=== PATIENT | female | born 1980 ===

== ENCOUNTER 2017-10-28 01:40 | Inpatient (IN) | payer BC ==
[2017-10-28] MEDS ORDERED: Sodium Chloride 0.9% 1,000 ML ONE (02:00)
[2017-10-28] MEDS ORDERED: Sodium Chloride 0.9% 1,000 ML IV ONE (02:17)
--- NOTE | 2017-10-28 02:20 | C.PDOC ---
History Of Present Illness 37 year old female presents to the ER with a complaint of upper abdominal pain that began 2-3 days ago that worsens with deep inspiration. Denies nausea or diarrhea. Chief Complaint (Nursing): Abdominal Pain History Per: Patient History/Exam Limitations: no limitations Onset/Duration Of Symptoms: Days Current Symptoms Are (Timing): Still Present Location Of Pain/Discomfort: RUQ, Epigastric Radiation Of Pain To:: None Quality Of Discomfort: Unable To Describe Associated Symptoms: denies: Fever, Chills, Nausea, Vomiting Exacerbating Factors: None Alleviating Factors: None Recent travel outside of the [place]: No Past Medical History Reviewed: Historical Data, Nursing Documentation, Vital Signs Vital Signs: Last Vital Signs Temp 98.3 F 10/30/17 16:00 Pulse 60 10/30/17 16:00 Resp 20 10/30/17 16:00 BP 100/68 10/30/17 16:00 Pulse Ox 98 10/30/17 16:00 - Medical History PMH: No Chronic Diseases Surgical History: Cholecystectomy Family History: States: Unknown Family Hx - Social History Hx Alcohol Use: Yes Hx Substance Use: No - Immunization History Hx Tetanus Toxoid Vaccination: No Hx Influenza Vaccination: Yes Hx Pneumococcal Vaccination: No Review Of Systems Constitutional: Negative for: Fever, Chills Cardiovascular: Negative for: Chest Pain, Palpitations Respiratory: Negative for: Shortness of Breath Gastrointestinal: Positive for: Abdominal Pain. Negative for: Nausea, Vomiting Physical Exam - Physical Exam Appears: Non-toxic, No Acute Distress Skin: Normal Color, Warm, Dry Head: Atraumatic, Normacephalic Eye(s): bilateral: Normal Inspection Oral Mucosa: Moist Chest: Symmetrical, No Tenderness Cardiovascular: Rhythm Regular Respiratory: Normal Breath Sounds, No Rales, No Rhonchi, No Wheezing Gastrointestinal/Abdominal: Soft, Tenderness (Epigastric and RUQ), No Guarding, No Rebound Neurological/Psych: Oriented x3, Normal Speech ED Course And Treatment - Laboratory Results Result Diagrams: 10/30/17 08:04 10/30/17 08:04 O2 Sat by Pulse Oximetry: 100 (Room air) Pulse Ox Interpretation: Normal - CT Scan/US CT abd/pel Other Rad Studies (CT/US): Read By Radiologist, Radiology Report Reviewed CT/US Interpretation: EXAM: CT Abdomen and Pelvis Without Intravenous Contrast. CLINICAL HISTORY: 37 years old, female; Pain; Abdominal pain; Additional info: Right sided abd pain/ microscopic. hematuria. TECHNIQUE: Axial computed tomography images of the abdomen and pelvis without intravenous contrast. All CT. scans at this facility use one or more dose reduction techniques, viz.: automated exposure control;. ma/kV adjustment per patient size (including targeted exams where dose is matched to indication; i.e. head) ; or iterative reconstruction technique. 644 images are submitted. Coronal and sagittal reformatted images were created and reviewed. COMPARISON: No relevant prior studies available. FINDINGS: Lower thorax: Mild parabronchial cuffing, which can be seen with bronchitis, reactive airway disease. or viral pneumonitis versus mild failure. There is hazy patchy groundglass infiltration off lung bases. with areas of hyperlucency. Correlation with patient's hydration status is recommended. Trace right. pericardial effusion. ABDOMEN: Liver: Unremarkable. Gallbladder and bile ducts: Cholecystectomy. Pancreas: Unremarkable. No ductal dilation. Spleen: Unremarkable. No splenomegaly. Adrenals: Unremarkable. No mass. Kidneys and ureters: Unremarkable. No obstructing stones. No hydronephrosis. Stomach and bowel: There is dilatation of small bowel loops with air fluid level as well as stool-like. appearance to mid small bowel loops with transition in the right hemipelvis seen on image 72 series 2. suspicious for limited distal small bowel obstruction. Correlation with patient's obstructive symptoms. is recommended. No mucosal thickening. Appendix: Normal appendix. PELVIS: Bladder: Partially distended bladder. Reproductive: Hysterectomy. ABDOMEN and PELVIS: Intraperitoneal space: Moderate amount of free pelvic fluid. No free air. Bones/joints: No acute fracture. No dislocation. Soft tissues: Unremarkable. Vasculature: Unremarkable. No abdominal aortic aneurysm. Lymph nodes: Unremarkable. No enlarged lymph nodes. IMPRESSION: 1. There is dilatation of small bowel loops with air fluid level as well as stool-like appearance. to mid small bowel loops with transition in the right hemipelvis seen on image 72 series 2. suspicious for limited distal small bowel obstruction. Correlation with patient' s obstructive. symptoms is recommended. 2. Mild parabronchial cuffing, which can be seen with bronchitis, reactive airway disease or viral. pneumonitis versus mild failure. There is hazy patchy groundglass infiltration off lung bases with. areas of hyperlucency. Correlation with patient's hydration status is recommended. 3. Moderate amount of free pelvic fluid. Progress Note: Blood work and urinalysis ordered. Bentyl, toradol, zofran, and IV fluids administered. Patient refuses NG tube. Disposition Discussed With Dr.: Chrystal Armando Doctor Will See Patient In The: Hospital Counseled Patient/Family Regarding: Diagnosis - Disposition Disposition: HOSPITALIZED Disposition Time: 06:27 Condition: STABLE - POA Present On Arrival: None - Clinical Impression Clinical Impression: Abdominal pain, Small bowel obstruction - Scribe Statement The provider has reviewed the documentation as recorded by the Scribyasmin Mclean All medical record entries made by the Cheliibyasmin were at my direction and personally dictated by me. I have reviewed the chart and agree that the record accurately reflects my personal performance of the history, physical exam, medical decision making, and the department course for this patient. I have also personally directed, reviewed, and agree with the discharge instructions and disposition.
[2017-10-28 02:41] LABS: BASO # 0.1 K/uL (0.0-0.2); BASO % 0.5 % (0.0-2.0); EOS # 0.2 K/uL (0.0-0.7); EOS % 1.8 % (0.0-4.0); HEMOGLOBIN 13.2 g/dL (11.0-16.0); LYMPH # 3.7 K/uL (1.0-4.3); LYMPH % 26.8 % (20.0-40.0); MEAN CELL VOLUME 88.8 fL (81.0-99.0); MEAN CORPUSCULAR HEMOGLOBIN 29.5 pg (27.0-31.0); MEAN CORPUSCULAR HGB CONC 33.3 g/dL (33.0-37.0); MEAN PLATELET VOLUME 9.2 fL (7.2-11.7); MONO # 0.8 K/uL (0.0-0.8); MONO % 5.6 % (0.0-10.0); NEUT % 65.3 % (50.0-75.0); RBC 4.49 Mil/uL (3.80-5.20); WHITE BLOOD COUNT 13.8 K/uL (4.8-10.8)
[2017-10-28 02:47] LABS: SQUAMOUS EPITHIAL 10 /hpf (0-5); URINE BACTERIA RARE (<OCC); URINE BILIRUBIN NEGATIVE (NEGATIVE); URINE BLOOD 1+ (NEGATIVE); URINE CALCIUM OXALATE CRYSTALS MOD /hpf (<OCC); URINE CLARITY Hazy (Clear); URINE COLOR Yellow (YELLOW); URINE GLUCOSE (UA) NORMAL (Normal); URINE LEUKOCYTE ESTERASE NEG Leu/uL (Negative); URINE NITRATE NEGATIVE (NEGATIVE); URINE PROTEIN 1+ mg/dL (NEGATIVE); URINE UROBILINOGEN NORMAL mg/dL (0.2-1.0)
[2017-10-28 02:51] LABS: CALCIUM 9.7 mg/dl (8.6-10.4); GFR AFRICAN-AMERICAN > 60; GFR NON-AFRICAN AMERICAN > 60; LIPASE 67 U/L (23-300)
[2017-10-28 02:52] LABS: ALB/GLOB RATIO 1.1 (1.0-2.1); ALBUMIN 4.6 g/dL (3.5-5.0); ALT/SGPT 22 U/L (9-52); AST/SGOT 38 U/L (14-36); BLOOD UREA NITROGEN 13 mg/dL (7-17)
[2017-10-28 02:55] LABS: HCG,QUALITATIVE URINE NEGATIVE (NEGATIVE)
[2017-10-28] MEDS ORDERED: Ciprofloxacin 400mg/200ml D5W 400 MG/200 ML BAG IVPB STA (03:55)
[2017-10-28] MEDS ORDERED: Ciprofloxacin 400mg/200ml D5W 400 MG/200 ML BAG IVPB ONE (04:04)
--- NOTE | 2017-10-28 05:09 | US ---
EXAM: US Abdomen Limited, Right Upper Quadrant CLINICAL HISTORY: 37 years old, female; Pain; Abdominal pain; Epigastric; Prior surgery; Surgery date: 6+ months; Surgery type: Cholecystectomy; Additional info: Ruq pain/ tenderness TECHNIQUE: Real-time ultrasound of the right upper quadrant with image documentation. COMPARISON: No relevant prior studies available. FINDINGS: Artifacts: Limited due to bowel gas shadowing. Limited due to shadowing from the ribs. Liver: Hepatomegaly measuring 18.24 cm. Limited evaluation of the liver due to shadowing. There is flow in the left portal vein left hepatic vein Gallbladder: Cholecystectomy. Common bile duct: The common bile duct measures 6 mm which is normal. Pancreas: The pancreas is not well-seen. Echogenic pancreas. Right kidney: The right kidney measures 11.35 x 3.66 x 4.72 cm. No stones. No hydronephrosis. Aorta: The proximal aorta measures 1.5 cm, the mid to distal abdominal aorta appears unremarkable. No aneurysm. 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 IMPRESSION: No acute findings.
--- NOTE | 2017-10-28 06:15 | CT ---
EXAM: CT Abdomen and Pelvis Without Intravenous Contrast CLINICAL HISTORY: 37 years old, female; Pain; Abdominal pain; Additional info: Right sided abd pain/ microscopic hematuria TECHNIQUE: Axial computed tomography images of the abdomen and pelvis without intravenous contrast. All CT scans at this facility use one or more dose reduction techniques, viz.: automated exposure control; ma/kV adjustment per patient size (including targeted exams where dose is matched to indication; i.e. head); or iterative reconstruction technique. 644 images are submitted. Coronal and sagittal reformatted images were created and reviewed. COMPARISON: No relevant prior studies available. FINDINGS: Lower thorax: Mild parabronchial cuffing, which can be seen with bronchitis, reactive airway disease or viral pneumonitis versus mild failure. There is hazy patchy groundglass infiltration off lung bases with areas of hyperlucency. Correlation with patient's hydration status is recommended. Trace right pericardial effusion. ABDOMEN: Liver: Unremarkable. Gallbladder and bile ducts: Cholecystectomy. Pancreas: Unremarkable. No ductal dilation. Spleen: Unremarkable. No splenomegaly. Adrenals: Unremarkable. No mass. Kidneys and ureters: Unremarkable. No obstructing stones. No hydronephrosis. Stomach and bowel: There is dilatation of small bowel loops with air fluid level as well as stool-like appearance to mid small bowel loops with transition in the right hemipelvis seen on image 72 series 2 suspicious for limited distal small bowel obstruction. Correlation with patient's obstructive symptoms is recommended. No mucosal thickening. Appendix: Normal appendix. PELVIS: Bladder: Partially distended bladder. Reproductive: Hysterectomy. ABDOMEN and PELVIS: Intraperitoneal space: Moderate amount of free pelvic fluid. No free air. Bones/joints: No acute fracture. No dislocation. Soft tissues: Unremarkable. Vasculature: Unremarkable. No abdominal aortic aneurysm. Lymph nodes: Unremarkable. No enlarged lymph nodes. IMPRESSION: 1. There is dilatation of small bowel loops with air fluid level as well as stool-like appearance to mid small bowel loops with transition in the right hemipelvis seen on image 72 series 2 suspicious for limited distal small bowel obstruction. Correlation with patient's obstructive symptoms is recommended. 2. Mild parabronchial cuffing, which can be seen with bronchitis, reactive airway disease or viral pneumonitis versus mild failure. There is hazy patchy groundglass infiltration off lung bases with areas of hyperlucency. Correlation with patient's hydration status is recommended. 3. Moderate amount of free pelvic fluid.
[2017-10-28] MEDS ORDERED: Morphine 4 MG/ML VIAL ONE (06:30)
--- NOTE | 2017-10-28 11:52 | CP.PCM.CON ---
History of Present Illness - History of Present Illness History of Present Illness: General Surgery Consult Note for Dr. Emerson Reason for consult: abdominal pain 37 year old female presents to the [facility] complaining of diffuse abdominal pain and feeling bloated. She states that her pain began yesterday night at 9pm, while she was drinking tea. She also states that she vomited 8 times since her pain began (non-bloody, non-bilious). She has felt "gassy" in the past, but denies any similar episodes to this severity. She states that her pain is currently a 7/10. She describes her pain as dull and achy and described her vomit as yellow, and absent of blood or solids. She denies any radiation of the pain and any other associated symptoms. She denies any sick contacts. She states that she traveled to [place] last November with no health complications. The patient denies fevers/chills, chest pain, palpitations, dyspnea, cough, diarrhea, constipation, or dysuria. She admits to nausea and vomiting. Her last bowel movement was today at 1 am, and was normal in color and consistency. CT imaging showed dilatation of the small bowel loops with air fluid level as well as stool, suggestive of SBO. PMH: Denies PSH: Cholecystectomy in 2007, in 2007 and 2012( 2nd time had complications with hemorrhage) FH: Brother has gastritis Medications: OTC Peptobismo Allergies: NKDA Social Hx: drinks alcohol socially, denies smoking,, denies illict drugs, lives with . Review of Systems - Review of Systems All systems: reviewed and no additional remarkable complaints except Past Patient History - Infectious Disease Hx of Infectious Diseases: None - Past Social History Smoking Status: Never Smoked - PSYCHIATRIC Hx Substance Use: No - SURGICAL HISTORY Hx Cholecystectomy: Yes - ANESTHESIA Hx Anesthesia: Yes Hx Anesthesia Reactions: No Hx Malignant Hyperthermia: No Meds Allergies/Adverse Reactions: Allergies Allergy/AdvReac Type Severity Reaction Status Date / Time No Known Allergies Allergy Unverified 10/28/17 01:55 - Medications Medications: Current Medications Hydromorphone HCl (Dilaudid) 1 mg IVP Q6H PRN PRN Reason: Pain, moderate (4-7) Last Admin: 10/28/17 08:01 Dose: 1 mg Sodium Chloride (Sodium Chloride 0.9%) 1,000 mls @ 100 mls/hr IV .Q10H [facility] Stop: 10/28/17 12:16 Last Admin: 10/28/17 02:21 Dose: 100 mls/hr Ciprofloxacin (Cipro 200mg/100ml D5w) 100 mls @ 67 mls/hr IVPB Q12H [facility] Morphine Sulfate (Morphine) 2 mg IVP Q4 PRN PRN Reason: Pain, severe (8-10) Pantoprazole Sodium (Protonix Inj) 40 mg IVP DAILY [facility] Last Admin: 10/28/17 09:58 Dose: 40 mg Physical Exam - Constitutional Appears: Well - Head Exam Head Exam: NORMAL INSPECTION - Cardiovascular Exam Cardiovascular Exam: REGULAR RHYTHM, RRR, +S1, +S2 - GI/Abdominal Exam GI & Abdominal Exam: Normal Bowel Sounds, Soft, Tenderness. absent: Distended, Guarding, Rebound, Rigid - Neurological Exam Neurological exam: Alert, Oriented x3 Results - Vital Signs Recent Vital Signs: Last Vital Signs Temp 98.6 F 10/28/17 07:30 Pulse 102 H 10/28/17 09:57 Resp 20 10/28/17 09:57 BP 101/47 L 10/28/17 09:57 Pulse Ox 97 10/28/17 09:57 - Labs Result Diagrams: 10/28/17 02:35 10/28/17 02:35 Labs: Laboratory Results - last 24 hr 10/28/17 10/28/17 10/28/17 02:35 02:35 02:35 WBC 13.8 H RBC 4.49 Hgb 13.2 Hct 39.8 MCV 88.8 MCH 29.5 MCHC 33.3 RDW 14.0 Plt Count 326 MPV 9.2 Neut % (Auto) 65.3 Lymph % (Auto) 26.8 [place] % (Auto) 5.6 Eos % (Auto) 1.8 Baso % (Auto) 0.5 Neut # 9.0 H Lymph # 3.7 Mathews # 0.8 Eos # 0.2 Baso # 0.1 Sodium 135 Potassium 4.6 Chloride 99 Carbon Dioxide 23 Anion Gap 17 BUN 13 Creatinine 0.6 L Est GFR ( Amer) > 60 Est GFR (Non-Af Amer) > 60 Random Glucose 99 Calcium 9.7 Total Bilirubin 0.7 AST 38 H ALT 22 Alkaline Phosphatase 106 Total Protein 8.6 H Albumin 4.6 Globulin 4.1 H Albumin/Globulin Ratio 1.1 Lipase 67 Urine Color Yellow Urine Clarity Hazy Urine pH 5.0 Ur Specific [place] 1.029 Urine Protein 1+ H Urine Glucose (UA) Normal Urine Ketones Negative Urine Blood 1+ H Urine Nitrate Negative Urine Bilirubin Negative Urine Urobilinogen Normal Ur Leukocyte Esterase Neg Urine WBC (Auto) 4 Urine RBC (Auto) 11 H Ur Squamous Epith Cells 10 H Calcium Oxalate Crystal Mod H Urine Bacteria Rare Urine HCG, Qual Negative Assessment & Plan - Assessment and Plan (Free Text) Assessment: 37 F with abdominal pain, CT suggestive of partial SBO Plan: -NPO -Will order obstructive series in AM -IV fluids -Analgesics/Anti-emetics PRN -Monitor for bowel function -Serial abdominal exams -Discussed with Dr. Ki Oakley PGY1 - Date & Time Date: 10/28/17 Time: 19:04
[2017-10-28] MEDS: Ciprofloxacin 200mg/100ml D5W 100 ML IVPB SCH (15:03)
[2017-10-28] MEDS ORDERED: Morphine 4 MG/ML VIAL IVP PRN (19:00)
--- NOTE | 2017-10-28 19:17 | CP.PCM.HP ---
Past Patient History - Infectious Disease Hx of Infectious Diseases: None - Past Social History Smoking Status: Never Smoked - PSYCHIATRIC Hx Substance Use: No - SURGICAL HISTORY Hx Cholecystectomy: Yes - ANESTHESIA Hx Anesthesia: Yes Hx Anesthesia Reactions: No Hx Malignant Hyperthermia: No Meds Allergies/Adverse Reactions: Allergies Allergy/AdvReac Type Severity Reaction Status Date / Time No Known Allergies Allergy Unverified 10/28/17 01:55 Physical Exam - Constitutional Appears: Well - Head Exam Head Exam: ATRAUMATIC, NORMAL INSPECTION, NORMOCEPHALIC - Eye Exam Eye Exam: EOMI, Normal appearance, PERRL Pupil Exam: NORMAL ACCOMODATION, PERRL - ENT Exam ENT Exam: Mucous Membranes Moist, Normal Exam - Neck Exam Neck exam: Positive for: Normal Inspection - Respiratory Exam Respiratory Exam: Decreased Breath Sounds - Cardiovascular Exam Cardiovascular Exam: REGULAR RHYTHM, +S1, +S2 - GI/Abdominal Exam GI & Abdominal Exam: Diminished Bowel Sounds, Soft - Rectal Exam Rectal Exam: Deferred Results - Vital Signs Recent Vital Signs: Last Vital Signs Temp 98.3 F 10/28/17 17:27 Pulse 76 10/28/17 17:27 Resp 18 10/28/17 17:27 BP 90/50 L 10/28/17 17:27 Pulse Ox 98 10/28/17 17:27 - Labs Result Diagrams: 10/28/17 02:35 10/28/17 02:35 Labs: Laboratory Results - last 24 hr 10/28/17 10/28/17 10/28/17 02:35 02:35 02:35 WBC 13.8 H RBC 4.49 Hgb 13.2 Hct 39.8 MCV 88.8 MCH 29.5 MCHC 33.3 RDW 14.0 Plt Count 326 MPV 9.2 Neut % (Auto) 65.3 Lymph % (Auto) 26.8 [place] % (Auto) 5.6 Eos % (Auto) 1.8 Baso % (Auto) 0.5 Neut # 9.0 H Lymph # 3.7 [place] # 0.8 Eos # 0.2 Baso # 0.1 Sodium 135 Potassium 4.6 Chloride 99 Carbon Dioxide 23 Anion Gap 17 BUN 13 Creatinine 0.6 L Est GFR ( Amer) > 60 Est GFR (Non-Af Amer) > 60 Random Glucose 99 Calcium 9.7 Total Bilirubin 0.7 AST 38 H ALT 22 Alkaline Phosphatase 106 Total Protein 8.6 H Albumin 4.6 Globulin 4.1 H Albumin/Globulin Ratio 1.1 Lipase 67 Urine Color Yellow Urine Clarity Hazy Urine pH 5.0 Ur Specific [place] 1.029 Urine Protein 1+ H Urine Glucose (UA) Normal Urine Ketones Negative Urine Blood 1+ H Urine Nitrate Negative Urine Bilirubin Negative Urine Urobilinogen Normal Ur Leukocyte Esterase Neg Urine WBC (Auto) 4 Urine RBC (Auto) 11 H Ur Squamous Epith Cells 10 H Calcium Oxalate Crystal Mod H Urine Bacteria Rare Urine HCG, Qual Negative
[2017-10-28] MEDS: Sodium Chloride 0.9% 1,000 ML IV SCH (19:40)
[2017-10-29] MEDS: Ciprofloxacin 200mg/100ml D5W 100 ML IVPB SCH (03:05)
[2017-10-29] MEDS: Sodium Chloride 0.9% 1,000 ML IV SCH ×4 (05:30→20:17)
[2017-10-29 07:52] LABS: BASO # 0.1 K/uL (0.0-0.2); BASO % 0.6 % (0.0-2.0); EOS # 0.1 K/uL (0.0-0.7); EOS % 1.6 % (0.0-4.0); HEMOGLOBIN 12.4 g/dL (11.0-16.0); LYMPH # 3.1 K/uL (1.0-4.3); LYMPH % 35.4 % (20.0-40.0); MEAN CELL VOLUME 89.3 fL (81.0-99.0); MEAN CORPUSCULAR HEMOGLOBIN 30.9 pg (27.0-31.0); MEAN CORPUSCULAR HGB CONC 34.6 g/dL (33.0-37.0); MEAN PLATELET VOLUME 8.8 fL (7.2-11.7); MONO # 0.6 K/uL (0.0-0.8); MONO % 6.6 % (0.0-10.0); NEUT # 4.9 K/uL (1.8-7.0); NEUT % 55.8 % (50.0-75.0); RBC 4.01 Mil/uL (3.80-5.20); RED CELL DISTRIBUTION WIDTH 13.8 % (11.5-14.5); WHITE BLOOD COUNT 8.8 K/uL (4.8-10.8)
[2017-10-29 08:13] LABS: MAGNESIUM 1.9 mg/dL (1.6-2.3)
--- NOTE | 2017-10-29 09:17 | CP.PCM.PN ---
Subjective - Date & Time of Evaluation Date of Evaluation: 10/29/17 Time of Evaluation: 09:57 - Subjective Subjective: General Surgery Note for Dr. Emerson Patient seen and examined at bedside. No acute event overnight. Patient states pain has improved. She reports to passing gas. Patient asking for something to drink at least. Patient has no other complaints. NGT with 250cc of output over 24 hrs. Objective - Vital Signs/Intake and Output Vital Signs (last 24 hours): Temp Pulse Resp BP Pulse Ox 98.2 F 60 20 98/64 L 96 10/29/17 08:18 10/29/17 08:18 10/29/17 08:18 10/29/17 08:18 10/29/17 08:18 Intake and Output: 10/29/17 10/29/17 06:59 18:59 Intake Total 800 Output Total 250 Balance 550 - Medications Medications: Current Medications Hydromorphone HCl (Dilaudid) 1 mg IVP Q6H PRN PRN Reason: Pain, severe (8-10) Ciprofloxacin (Cipro 200mg/100ml D5w) 100 mls @ 67 mls/hr IVPB Q12H [facility] Last Admin: 10/29/17 03:05 Dose: 67 mls/hr Sodium Chloride (Sodium Chloride 0.9%) 1,000 mls @ 100 mls/hr IV .Q10H [facility] Last Admin: 10/29/17 05:30 Dose: Not Given Morphine Sulfate (Morphine) 2 mg IVP Q4 PRN PRN Reason: Pain, moderate (4-7) Pantoprazole Sodium (Protonix Inj) 40 mg IVP DAILY [facility] Last Admin: 10/28/17 09:58 Dose: 40 mg - Labs Labs: 10/29/17 07:34 10/28/17 02:35 - Constitutional Appears: No Acute Distress - Head Exam Head Exam: ATRAUMATIC, NORMOCEPHALIC - Eye Exam Eye Exam: Normal appearance - ENT Exam Additional comments: NG tube - Neck Exam Neck Exam: Full ROM - Respiratory Exam Respiratory Exam: NORMAL BREATHING PATTERN - Cardiovascular Exam Cardiovascular Exam: REGULAR RHYTHM - GI/Abdominal Exam GI & Abdominal Exam: Soft. absent: Distended, Firm, Guarding, Rigid, Tenderness , Rebound - Extremities Exam Extremities Exam: Normal Capillary Refill - Back Exam Back Exam: absent: CVA tenderness (L), CVA tenderness (R) - Neurological Exam Neurological Exam: Alert, Awake, Oriented x3 - Psychiatric Exam Psychiatric exam: Normal Affect, Normal Mood - Skin Skin Exam: Dry, Intact, Normal Color, Warm Assessment and Plan - Assessment and Plan (Free Text) Plan: 37 F with abdominal pain suspected SBO -Obstructive series this AM -Ice chips -IV fluids -Analgesics/Analgesics PRN -Will discuss with Dr. Ki Oakley PGY1
--- NOTE | 2017-10-29 10:15 | CP.PCM.PN ---
Subjective - Date & Time of Evaluation Date of Evaluation: 10/29/17 Time of Evaluation: 10:11 - Subjective Subjective: PGY2 progress note for Dr. Armando Pt seen and examined at bedside. No acute events overnight. NG tube is in place draining dark blious fluid 250 cc overnight. Pt states abd pain is slightly improved from before. Pt is passing gas. Denies having any N/V, F/C, CP, SOB. 12 point ROS negative except for above mentioned. Objective - Vital Signs/Intake and Output Vital Signs (last 24 hours): Temp Pulse Resp BP Pulse Ox 98.2 F 60 20 98/64 L 96 10/29/17 08:18 10/29/17 08:18 10/29/17 08:18 10/29/17 08:18 10/29/17 08:18 Intake and Output: 10/29/17 10/29/17 06:59 18:59 Intake Total 800 Output Total 250 Balance 550 - Medications Medications: Current Medications Hydromorphone HCl (Dilaudid) 1 mg IVP Q6H PRN PRN Reason: Pain, severe (8-10) Ciprofloxacin (Cipro 200mg/100ml D5w) 100 mls @ 67 mls/hr IVPB Q12H [facility] Last Admin: 10/29/17 03:05 Dose: 67 mls/hr Sodium Chloride (Sodium Chloride 0.9%) 1,000 mls @ 100 mls/hr IV .Q10H [facility] Last Admin: 10/29/17 05:30 Dose: Not Given Morphine Sulfate (Morphine) 2 mg IVP Q4 PRN PRN Reason: Pain, moderate (4-7) Pantoprazole Sodium (Protonix Inj) 40 mg IVP DAILY [facility] Last Admin: 10/28/17 09:58 Dose: 40 mg - Labs Labs: 10/29/17 07:34 10/28/17 02:35 - Constitutional Appears: Non-toxic, No Acute Distress - ENT Exam ENT Exam: Mucous Membranes Moist - Respiratory Exam Respiratory Exam: Clear to Ausculation Bilateral. absent: Accessory Muscle Use , Rhonchi, Wheezes, Respiratory Distress - Cardiovascular Exam Cardiovascular Exam: REGULAR RHYTHM, +S1, +S2. absent: Gallop, Rubs, Murmur - GI/Abdominal Exam GI & Abdominal Exam: Soft, Tenderness (lower quadrants ), Normal Bowel Sounds. absent: Distended, Firm, Guarding, Rigid - Extremities Exam Extremities Exam: absent: Pedal Edema, Tenderness - Neurological Exam Neurological Exam: Alert, Awake, Oriented x3 - Psychiatric Exam Psychiatric exam: Normal Affect, Normal Mood - Skin Skin Exam: Dry, Intact, Normal Color, Warm Assessment and Plan - Assessment and Plan (Free Text) Assessment: 37 year old female with no significant past medical history of admitted for suspected SBO. SBO Obstructive series done this morning, pending report. CT A/P on admission showed dilation of small bowel loops with air-fluid level suspicious for SBO and moderate free pelvic fluid. Abd US on admission was normal NG tube was inserted yesterday. Overnight, drained about 200 cc of bilious fluid Currently tolerating ice chips Surgery is consulted Pain management with Morphine 2 mg IVP q4 and Dilaudid 1 mg IVP q6 prn Currently on ciprofloxacin Continue NS at 100 cc Prophylaxis Protonix SCDs Will consider starting rx. dvt prophylaxis all managements and orders per Dr. Armando
--- NOTE | 2017-10-29 11:57 | CP.PCM.PN ---
Subjective - Date & Time of Evaluation Date of Evaluation: 10/29/17 Time of Evaluation: 09:00 - Subjective Subjective: clinically same Objective - Vital Signs/Intake and Output Vital Signs (last 24 hours): Temp Pulse Resp BP Pulse Ox 98.2 F 60 20 98/64 L 96 10/29/17 08:18 10/29/17 08:18 10/29/17 08:18 10/29/17 08:18 10/29/17 08:18 Intake and Output: 10/29/17 10/29/17 06:59 18:59 Intake Total 800 Output Total 250 Balance 550 - Medications Medications: Current Medications Hydromorphone HCl (Dilaudid) 1 mg IVP Q6H PRN PRN Reason: Pain, severe (8-10) Sodium Chloride (Sodium Chloride 0.9%) 1,000 mls @ 100 mls/hr IV .Q10H [facility] Last Admin: 10/29/17 10:22 Dose: 100 mls/hr Morphine Sulfate (Morphine) 2 mg IVP Q4 PRN PRN Reason: Pain, moderate (4-7) Pantoprazole Sodium (Protonix Inj) 40 mg IVP DAILY [facility] Last Admin: 10/29/17 10:10 Dose: 40 mg - Labs Labs: 10/29/17 07:34 10/28/17 02:35 - Constitutional Appears: Well - Head Exam Head Exam: ATRAUMATIC, NORMAL INSPECTION, NORMOCEPHALIC - Eye Exam Eye Exam: EOMI, Normal appearance, PERRL Pupil Exam: NORMAL ACCOMODATION, PERRL - ENT Exam ENT Exam: Mucous Membranes Moist, Normal Exam - Neck Exam Neck Exam: Full ROM, Normal Inspection. absent: Lymphadenopathy - Respiratory Exam Respiratory Exam: Decreased Breath Sounds - Cardiovascular Exam Cardiovascular Exam: REGULAR RHYTHM, +S1, +S2 - GI/Abdominal Exam GI & Abdominal Exam: Soft, Diminished Bowel Sounds - Rectal Exam Rectal Exam: Deferred
--- NOTE | 2017-10-29 16:54 | RAD ---
PROCEDURE: Radiographs of the chest and abdomen (obstructive series) HISTORY: evaluate for sbo COMPARISON: No prior. TECHNIQUE: AP radiograph of the chest, with upright and supine radiographs of the abdomen. FINDINGS: CHEST: Mild bibasilar atelectasis. ABDOMEN AND PELVIS: In situ NGT, tip of which overlies left parasagittal upper/mid abdomen. Postoperative changes the metallic clips right upper quadrant of the abdomen consistent with prior cholecystectomy. Stool is seen throughout the distal transverse and proximal descending colon. No evidence of acute mechanical bowel obstruction. No gross free intraperitoneal air so far as can be seen. IMPRESSION: Mild bibasilar atelectasis. In situ NGT. Changes of cholecystectomy. No evidence of acute mechanical bowel obstruction
[2017-10-30] MEDS: Sodium Chloride 0.9% 1,000 ML IV SCH ×2 (02:02→12:06)
[2017-10-30 08:23] LABS: BASO # 0.1 K/uL (0.0-0.2); BASO % 0.9 % (0.0-2.0); EOS # 0.2 K/uL (0.0-0.7); EOS % 2.1 % (0.0-4.0); HEMOGLOBIN 12.3 g/dL (11.0-16.0); LYMPH # 3.1 K/uL (1.0-4.3); LYMPH % 39.8 % (20.0-40.0); MEAN CELL VOLUME 89.2 fL (81.0-99.0); MEAN CORPUSCULAR HEMOGLOBIN 30.4 pg (27.0-31.0); MEAN CORPUSCULAR HGB CONC 34.1 g/dL (33.0-37.0); MEAN PLATELET VOLUME 8.9 fL (7.2-11.7); MONO # 0.4 K/uL (0.0-0.8); MONO % 5.1 % (0.0-10.0); NEUT # 4.1 K/uL (1.8-7.0); NEUT % 52.1 % (50.0-75.0); NRBC % 0.1 % (0.0-2.0); RBC 4.03 Mil/uL (3.80-5.20); RED CELL DISTRIBUTION WIDTH 13.6 % (11.5-14.5); WHITE BLOOD COUNT 7.8 K/uL (4.8-10.8)
[2017-10-30 08:34] LABS: ALB/GLOB RATIO 1.1 (1.0-2.1); ALBUMIN 3.5 g/dL (3.5-5.0); ALT/SGPT 31 U/L (9-52); AST/SGOT 27 U/L (14-36); BLOOD UREA NITROGEN 9 mg/dL (7-17); CALCIUM 8.3 mg/dl (8.6-10.4); GFR AFRICAN-AMERICAN > 60; GFR NON-AFRICAN AMERICAN > 60
[2017-10-30 08:50] VITALS: RESP 20
[2017-10-30] MEDS ORDERED: Pantoprazole 40 mg EC Tab PO SCH (10:30)
--- NOTE | 2017-10-30 13:40 | CP.PCM.PN ---
Subjective - Date & Time of Evaluation Date of Evaluation: 10/30/17 Time of Evaluation: 13:37 - Subjective Subjective: PGY2 progress note for Dr. Armando Pt seen and examined at bedside. No acute events overnight. NG tube removed this morning. Pt states abd pain is improved. Denies having any N/V/D/C. Pt is passing gas and had 2 BMs. Denies having any F/C, CP, SOB. 12 point ROS negative except for above mentioned. Objective - Vital Signs/Intake and Output Vital Signs (last 24 hours): Temp Pulse Resp BP Pulse Ox 98.2 F 71 20 100/61 97 10/30/17 08:49 10/30/17 08:49 10/30/17 08:49 10/30/17 08:49 10/30/17 08:49 Intake and Output: 10/30/17 10/30/17 06:59 18:59 Intake Total 800 800 Output Total 200 200 Balance 600 600 - Medications Medications: Current Medications Hydromorphone HCl (Dilaudid) 1 mg IVP Q6H PRN PRN Reason: Pain, severe (8-10) Sodium Chloride (Sodium Chloride 0.9%) 1,000 mls @ 100 mls/hr IV .Q10H [facility] Last Admin: 10/30/17 12:06 Dose: 100 mls/hr Morphine Sulfate (Morphine) 2 mg IVP Q4 PRN PRN Reason: Pain, moderate (4-7) Pantoprazole Sodium (Protonix Ec Tab) 40 mg PO DAILY [facility] Last Admin: 10/30/17 10:50 Dose: 40 mg Pneumococcal Polyvalent Vaccine (Pneumovax 23 Vaccine) 0.5 ml IM .ONCE ONE Stop: 10/31/17 10:01 - Labs Labs: 10/30/17 08:04 10/30/17 08:04 - Constitutional Appears: Non-toxic, No Acute Distress - Head Exam Head Exam: ATRAUMATIC - ENT Exam ENT Exam: Mucous Membranes Moist - Respiratory Exam Respiratory Exam: Clear to Ausculation Bilateral. absent: Accessory Muscle Use , Rales, Rhonchi, Wheezes, Respiratory Distress - Cardiovascular Exam Cardiovascular Exam: REGULAR RHYTHM, +S1, +S2. absent: Gallop, Rubs, Murmur - GI/Abdominal Exam GI & Abdominal Exam: Soft, Normal Bowel Sounds. absent: Distended, Firm, Guarding, Rigid, Tenderness, Organomegaly - Extremities Exam Extremities Exam: absent: Pedal Edema, Tenderness - Neurological Exam Neurological Exam: Alert, Awake, Oriented x3 - Psychiatric Exam Psychiatric exam: Normal Affect, Normal Mood - Skin Skin Exam: Dry, Intact, Normal Color, Warm Assessment and Plan - Assessment and Plan (Free Text) Assessment: 37 year old female with no significant past medical history of admitted for suspected SBO. SBO -Obstructive series done yesterday showed no SBO. -CT A/P on admission showed dilation of small bowel loops with air-fluid level suspicious for SBO and moderate free pelvic fluid. -Abd US on admission was normal - NG tube removed. Will advance diet today. If pt tolerates, will D/C -Pain management with Morphine 2 mg IVP q4 and Dilaudid 1 mg IVP q6 prn -Continue NS at 100 cc Prophylaxis Protonix SCDs all managements and orders per Dr. Armando
--- NOTE | 2017-10-30 14:03 | CP.PCM.PN ---
Subjective - Date & Time of Evaluation Date of Evaluation: 10/30/17 Time of Evaluation: 08:59 - Subjective Subjective: General Surgery Progress Note for Dr. Emerson This patient was seen and examined this AM at bedside. No acute events overnight. Patient is passing gas, moving bowels, denies chest pain SOB nause vomiting fevers chills or chest pain. Objective - Vital Signs/Intake and Output Vital Signs (last 24 hours): Temp Pulse Resp BP Pulse Ox 98.2 F 71 20 100/61 97 10/30/17 08:49 10/30/17 08:49 10/30/17 08:49 10/30/17 08:49 10/30/17 08:49 Intake and Output: 10/30/17 10/30/17 06:59 18:59 Intake Total 800 800 Output Total 200 200 Balance 600 600 - Medications Medications: Current Medications Hydromorphone HCl (Dilaudid) 1 mg IVP Q6H PRN PRN Reason: Pain, severe (8-10) Sodium Chloride (Sodium Chloride 0.9%) 1,000 mls @ 100 mls/hr IV .Q10H [facility] Last Admin: 10/30/17 12:06 Dose: 100 mls/hr Morphine Sulfate (Morphine) 2 mg IVP Q4 PRN PRN Reason: Pain, moderate (4-7) Pantoprazole Sodium (Protonix Ec Tab) 40 mg PO DAILY [facility] Last Admin: 10/30/17 10:50 Dose: 40 mg Pneumococcal Polyvalent Vaccine (Pneumovax 23 Vaccine) 0.5 ml IM .ONCE ONE Stop: 10/31/17 10:01 - Labs Labs: 10/30/17 08:04 10/30/17 08:04 - Constitutional Appears: Non-toxic, No Acute Distress - Head Exam Head Exam: ATRAUMATIC, NORMOCEPHALIC - Eye Exam Eye Exam: EOMI, Normal appearance - ENT Exam ENT Exam: Mucous Membranes Moist - Respiratory Exam Respiratory Exam: NORMAL BREATHING PATTERN - Cardiovascular Exam Cardiovascular Exam: +S1, +S2 - GI/Abdominal Exam GI & Abdominal Exam: Soft. absent: Firm, Guarding, Rigid, Tenderness - Neurological Exam Neurological Exam: Alert, Awake Assessment and Plan - Assessment and Plan (Free Text) Assessment: 37 F with abdominal pain suspected SBO Advance diet as tolerated -serial abdominal exams -Will discuss with Dr. Ki Garnica PGY2
[2017-10-30 17:10] VITALS: BP 100/68; PULSE 60; TEMP 98.3
[2017-10-30] MEDS ORDERED: Influenza Vaccine 60 mcg/0.5 mL SYR (4YR UP) IM ONE (18:30)
[2017-10-30] MEDS ORDERED: Pneumococcal 23-Valent Vaccine IM ONE (18:30)
[2017-10-31 16:42] VITALS: O2SAT 100
== END 2017-10-30 20:19 | disposition home or self-care (01) | DRG 390 ==
LOC: C.ER 01:40 → C.9E 06:36 → C.3T 16:36
PROVIDERS: ADMIT Internal Medicine Nephrology; ATTEND Internal Medicine Nephrology
DX: K56.600 Partial intestinal obstruction, unspecified as to cause (principal); Z90.49 Acquired absence of other specified parts of digestive tract

== ENCOUNTER 2018-08-27 05:55 | Emergency (ER) | payer BC ==
[2018-08-27] MEDS ORDERED: Sodium Chloride 0.9% 1,000 ML IV ONE (07:14)
[2018-08-27 07:34] LABS: BASO # 0.1 K/uL (0.0-0.2); BASO % 0.4 % (0.0-2.0); EOS # 0.1 K/uL (0.0-0.7); EOS % 0.4 % (0.0-4.0); LYMPH # 2.3 K/uL (1.0-4.3); LYMPH % 12.4 % (20.0-40.0); MEAN CELL VOLUME 88.3 fL (81.0-99.0); MEAN CORPUSCULAR HEMOGLOBIN 29.7 pg (27.0-31.0); MEAN CORPUSCULAR HGB CONC 33.6 g/dL (33.0-37.0); MEAN PLATELET VOLUME 9.1 fL (7.2-11.7); MONO % 5.2 % (0.0-10.0); NEUT # 15.1 K/uL (1.8-7.0); NEUT % 81.6 % (50.0-75.0); RBC 4.72 Mil/uL (3.80-5.20); RED CELL DISTRIBUTION WIDTH 14.1 % (11.5-14.5); WHITE BLOOD COUNT 18.5 K/uL (4.8-10.8)
[2018-08-27] MEDS ORDERED: Sodium Chloride 0.9% 1,000 ML ONE (07:43)
[2018-08-27 07:49] LABS: ALB/GLOB RATIO 1.3 (1.0-2.1); ALBUMIN 4.7 g/dL (3.5-5.0); ALT/SGPT 44 U/L (9-52); AST/SGOT 36 U/L (14-36); BLOOD UREA NITROGEN 17 mg/dL (7-17); CALCIUM 9.3 mg/dl (8.6-10.4); GFR NON-AFRICAN AMERICAN > 60; LIPASE 62 U/L (23-300)
[2018-08-27 07:56] LABS: SQUAMOUS EPITHIAL 10 /hpf (0-5); URINE BACTERIA OCC (<OCC); URINE BILIRUBIN NEGATIVE (NEGATIVE); URINE BLOOD 1+ (NEGATIVE); URINE CLARITY Hazy (Clear); URINE COLOR Yellow (YELLOW); URINE GLUCOSE (UA) NORMAL (Normal); URINE LEUKOCYTE ESTERASE NEG Leu/uL (Negative); URINE PROTEIN NEGATIVE (NEGATIVE); URINE UROBILINOGEN NORMAL mg/dL (0.2-1.0)
--- NOTE | 2018-08-27 08:06 | C.PDOC ---
History Of Present Illness 38 year old female presents to the ED complaining of abdominal pain. Patient reports she woke up at 0300 this morning with the pain and had multiple episodes of vomiting and diarrhea since then. Notes abdominal pain is intermittent, cramping and is relieved when she has a bowel movement, but returns. Denies any fever, chills, or urinary symptoms. Time Seen by Provider: 08/27/18 07:01 Chief Complaint (Nursing): Abdominal Pain History Per: Patient History/Exam Limitations: no limitations Onset/Duration Of Symptoms: Hrs Current Symptoms Are (Timing): Still Present Location Of Pain/Discomfort: Epigastric Radiation Of Pain To:: None Associated Symptoms: Nausea, Vomiting, Diarrhea. denies: Fever, Chills, Urinary Symptoms Past Medical History Reviewed: Historical Data, Nursing Documentation, Vital Signs Vital Signs: Last Vital Signs Temp 98.7 F 08/27/18 05:57 Pulse 105 H 08/27/18 05:57 Resp 20 08/27/18 05:57 BP 117/80 08/27/18 05:57 Pulse Ox 99 08/27/18 05:57 - Medical History PMH: No Chronic Diseases Surgical History: Cholecystectomy, Other Surgeries: hysterectomy Family History: States: No Known Family Hx - Social History Hx Alcohol Use: Yes Hx Substance Use: No - Immunization History Hx Tetanus Toxoid Vaccination: No Hx Influenza Vaccination: No Hx Pneumococcal Vaccination: No Review Of Systems Constitutional: Negative for: Fever, Chills Cardiovascular: Negative for: Chest Pain Gastrointestinal: Positive for: Nausea, Vomiting, Abdominal Pain, Diarrhea Genitourinary: Negative for: Dysuria, Hematuria Musculoskeletal: Negative for: Back Pain Skin: Negative for: Rash Neurological: Negative for: Weakness, Numbness Physical Exam - Physical Exam Appears: Non-toxic, No Acute Distress Skin: Warm, Dry, No Rash Head: Normacephalic Eye(s): bilateral: PERRL, EOMI Nose: Normal Oral Mucosa: Dry Neck: Supple Cardiovascular: Rhythm Regular, No Murmur Respiratory: No Rales, No Rhonchi, No Wheezing Gastrointestinal/Abdominal: Soft, Tenderness (epigastric and LUQ tenderness ), No Distention, No Guarding, No Rebound Back: No CVA Tenderness Extremity: Bilateral: Atraumatic, Normal Color And Temperature, Normal ROM Neurological/Psych: Oriented x3, Normal Speech, Normal Cognition Gait: Steady ED Course And Treatment - Laboratory Results Result Diagrams: 08/27/18 07:29 08/27/18 07:29 O2 Sat by Pulse Oximetry: 99 (RA) Pulse Ox Interpretation: Normal - CT Scan/US CT abd/pel Other Rad Studies (CT/US): Read By Radiologist, Radiology Report Reviewed CT/US Interpretation: IMPRESSION: No acute pathology. Progress Note: Patient reports feeling better. Denies any abdominal pain, nausea, or vomiting. Reevaluation Time: 07:50 Reassessment Condition: Improved Medical Decision Making Medical Decision Making: Plan pt with epigastric tenderness on exam, with n/v/d and cramping pain with bm. - Pepcid 20mg IVP - Zofran 4mg IVP - IV fluids labs 0820 pt still with epigastric pain on exam, will get ct abdomen. 1125 pt with no acute findings on ct abdomen. pt has not vomited in ed. on re- exam of abdomen, soft, nd, nt. will d/c home with pepcid and zofran. f/u pmd. Disposition Counseled Patient/Family Regarding: Studies Performed, Diagnosis, Need For Followup, Rx Given - Disposition Referrals: [facility] [Outside] Disposition: HOME/ ROUTINE Disposition Time: 11:26 Condition: IMPROVED Additional Instructions: [place] Pepcid segn lo prescrito. Puede usar ondansetrn hasta 3 veces al da para las nuseas si es necesario. Ashley lquidos derrick hoy en pequeas cantidades a la vez, luego puede agregar tostadas, galletas, arroz hickey comn, compota de manzana, sopa segn sea tolerado. Karen un seguimiento con shook mdico o en la clnica en los prximos oviedo. Regrese a la krysta de emergencias para cualquier sntoma peor. Take Pepcid as prescribed. May use ondansetron up to 3 times a day for nausea if needed. Drink clear fluids today in small amounts at a time, then can add toast, crackers, plain white rice, applesauce, soup as tolerated. Follow up with your doctor or in the clinic in the next few days. Return to ER for any worse symptoms. Prescriptions: Famotidine [Pepcid] 20 mg PO DAILY #14 tab Ondansetron ODT [Zofran ODT] 4 mg PO TID #12 odt Instructions: Viral Gastroenteritis, Adult (DC) Forms: Gen Discharge Inst Japanese, [facility] (Japanese) - Clinical Impression Clinical Impression: Gastroenteritis - PA / PEARL HAND / Resident Statement MD/DO has reviewed & agrees with the documentation as recorded. - Scribe Statement The provider has reviewed the documentation as recorded by the Scribyasmin Mullins All medical record entries made by the Ankit were at my direction and personally dictated by me. I have reviewed the chart and agree that the record accurately reflects my personal performance of the history, physical exam, medical decision making, and the department course for this patient. I have also personally directed, reviewed, and agree with the discharge instructions and di sposition.
[2018-08-27] MEDS ORDERED: Iodixanol 320 MG/ML 100 ML BOTTLE IV ONE (08:58)
--- NOTE | 2018-08-27 11:09 | CT ---
Date of service: 08/27/2018 PROCEDURE: CT Abdomen and Pelvis with and without intravenous contrast HISTORY: upper ab pain COMPARISON: None. TECHNIQUE: Axial images of the abdomen were obtained in the pre contrast, portal venous and delayed phases of enhancement. Coronal and sagittal reformats were generated. Contrast dose: Radiation dose: Total exam DLP = 490.34 mGy-cm. This CT exam was performed using one or more of the following dose reduction techniques: Automated exposure control, adjustment of the mA and/or kV according to patient size, and/or use of iterative reconstruction technique. FINDINGS: LOWER THORAX: Unremarkable. LIVER: Unremarkable. No gross lesion or ductal dilatation. GALLBLADDER AND BILE DUCTS: Cholecystectomy. PANCREAS: Unremarkable. No gross lesion or ductal dilatation. SPLEEN: Unremarkable. ADRENALS: Unremarkable. No mass. KIDNEYS AND URETERS: Unremarkable. No hydronephrosis. No solid mass. VASCULATURE: Unremarkable. No aortic aneurysm. No aortic atherosclerotic calcification or mural plaque present. BOWEL: Unremarkable. No obstruction. No gross mural thickening. APPENDIX: Normal appendix. PERITONEUM: Unremarkable. No free fluid. No free air. LYMPH NODES: Unremarkable. No enlarged lymph nodes. BLADDER: Unremarkable. REPRODUCTIVE: Status post supracervical hysterectomy. BONES: No acute fracture. OTHER FINDINGS: None. IMPRESSION: No acute pathology.
[2018-08-27 11:49] VITALS: RESP 18; TEMP 99.2
[2018-08-27 12:07] VITALS: BP 100/60; PULSE 80
[2018-08-27 13:44] VITALS: O2SAT 99
== END 2018-08-27 12:09 | disposition home or self-care (01) ==
LOC: C.ER 05:55
DX: K52.9 Noninfective gastroenteritis and colitis, unspecified (principal)
CPT/HCPCS: 74177; 80053; 81001; 83690; 85025; 96361; 96374; 96375; 99285; J2405; J7030; Q9967

== ENCOUNTER 2019-01-18 23:01 | Emergency (ER) | payer BC ==
[2019-01-18 23:34] VITALS: RESP 14; O2SAT 98
[2019-01-18] MEDS ORDERED: Sodium Chloride 0.9% 1,000 ML IV ONE (23:41)
--- NOTE | 2019-01-18 23:41 | C.PDOC ---
History Of Present Illness Patient presents with nausea and vomiting worsening over the last 2 days, had some diarrhea, but not today. Not tolerating po. no f/c. Had hysterectomy 6 years ago. Time Seen by Provider: 01/18/19 23:41 Chief Complaint (Nursing): Abdominal Pain History Per: Patient History/Exam Limitations: no limitations Onset/Duration Of Symptoms: Hrs Current Symptoms Are (Timing): Still Present Context: Other Severity: Moderate Pain Scale Rating Of: 5 Location Of Pain/Discomfort: Diffuse Radiation Of Pain To:: None Quality Of Discomfort: Dull, Cramping Associated Symptoms: Nausea, Vomiting. denies: Fever, Chills, Diarrhea Exacerbating Factors: None Alleviating Factors: None Last Bowel Movement: Today Recent travel outside of the [place]: No Additional History Per: Family Abnormal Vaginal Bleeding: No Last Menstral Period: 6 years ago Past Medical History Reviewed: Historical Data, Nursing Documentation, Vital Signs Vital Signs: Last Vital Signs Temp 98.7 F 01/18/19 23:31 Pulse 81 01/18/19 23:31 Resp 14 01/18/19 23:31 BP 124/79 01/18/19 23:31 Pulse Ox 98 01/18/19 23:31 Surgical History: Cholecystectomy, Family History: States: No Known Family Hx - Social History Hx Alcohol Use: Yes Hx Substance Use: No - Immunization History Hx Tetanus Toxoid Vaccination: No Hx Influenza Vaccination: No Hx Pneumococcal Vaccination: No Review Of Systems Constitutional: Negative for: Fever, Chills ENT: Negative for: Throat Pain Cardiovascular: Negative for: Chest Pain Respiratory: Negative for: Shortness of Breath Gastrointestinal: Positive for: Nausea, Vomiting, Abdominal Pain Genitourinary: Negative for: Dysuria Musculoskeletal: Negative for: Back Pain Skin: Negative for: Rash Neurological: Negative for: Weakness Psych: Negative for: Anxiety Physical Exam - Physical Exam Appears: Non-toxic Skin: Warm, Dry Head: Normacephalic Eye(s): bilateral: Normal Inspection Oral Mucosa: Moist Neck: Supple Chest: Symmetrical Cardiovascular: Rhythm Regular Respiratory: No Rales, No Rhonchi, No Wheezing Gastrointestinal/Abdominal: Soft, Tenderness, No Distention, No Guarding, No Rebound Back: No CVA Tenderness Extremity: No Tenderness Extremity: Bilateral: Atraumatic Neurological/Psych: Oriented x3 Gait: Steady ED Course And Treatment - Laboratory Results Result Diagrams: 01/18/19 23:59 01/18/19 23:59 O2 Sat by Pulse Oximetry: 98 Pulse Ox Interpretation: Normal Reevaluation Time: 04:10 Reassessment Condition: Improved Medical Decision Making Medical Decision Making: Upon provider reevaluation patient is feeling better, is medically stable, and requires no further treatment in the ED at this time. Patient will be discharged home with Rx for zofran . Counseling was provided and all questions were answered regarding diagnosis and need for follow up with the referred clinic. There is agreement to discharge plan. Return if symptoms persist or worsen. Disposition Counseled Patient/Family Regarding: Studies Performed, Diagnosis, Need For Fo llowup, Rx Given - Disposition Referrals: Nadia Abel RETAIL TRAINING MANAGER [Nurse Practitioner] - Disposition: HOME/ ROUTINE Disposition Time: 23:41 Condition: FAIR Additional Instructions: Por favor regrese si los sntomas recurren. Prescriptions: Ondansetron ODT [Zofran ODT] 1 odt PO BID PRN #6 odt PRN Reason: Nausea/Vomiting Pantoprazole Sodium [Protonix] 40 mg PO DAILY #14 ect Instructions: Acute Abdomen (Belly Pain), Adult (DC) Forms: [employer] (Romansh) Print Language: MALTESE - Clinical Impression Clinical Impression: Diarrhea, Nausea
[2019-01-19] MEDS ORDERED: Sodium Chloride 0.9% 1,000 ML ONE (00:14)
[2019-01-19 00:46] LABS: BASO % 0.3 % (0.0-2.0); EOS # 0.1 K/uL (0.0-0.7); EOS % 0.6 % (0.0-4.0); LYMPH # 1.9 K/uL (1.0-4.3); LYMPH % 14.9 % (20.0-40.0); MEAN CELL VOLUME 90.3 fL (81.0-99.0); MEAN CORPUSCULAR HEMOGLOBIN 30.5 pg (27.0-31.0); MEAN CORPUSCULAR HGB CONC 33.8 g/dL (33.0-37.0); MEAN PLATELET VOLUME 8.8 fL (7.2-11.7); MONO # 0.5 K/uL (0.0-0.8); MONO % 4.2 % (0.0-10.0); NEUT # 10.4 K/uL (1.8-7.0); NRBC % 0.1 % (0.0-2.0); RBC 4.58 Mil/uL (3.80-5.20); RED CELL DISTRIBUTION WIDTH 14.6 % (11.5-14.5); WHITE BLOOD COUNT 12.9 K/uL (4.8-10.8)
[2019-01-19 00:50] LABS: SQUAMOUS EPITHIAL 1 /hpf (0-5); URINE BACTERIA RARE (<OCC); URINE BILIRUBIN NEGATIVE (NEGATIVE); URINE BLOOD NEGATIVE (NEGATIVE); URINE CLARITY Clear (Clear); URINE COLOR Yellow (YELLOW); URINE GLUCOSE (UA) NORMAL (Normal); URINE LEUKOCYTE ESTERASE NEG Leu/uL (Negative); URINE PROTEIN 1+ mg/dL (NEGATIVE); URINE UROBILINOGEN NORMAL mg/dL (0.2-1.0)
[2019-01-19 00:53] LABS: HCG,QUALITATIVE URINE NEGATIVE (NEGATIVE); PROTHROMBIN TIME 11.3 SECONDS (9.7-12.2)
[2019-01-19 01:29] LABS: ALB/GLOB RATIO 1.5 (1.0-2.1); ALBUMIN 4.8 g/dL (3.5-5.0); ALT/SGPT 16 U/L (9-52); AST/SGOT 33 U/L (14-36); BLOOD UREA NITROGEN 14 mg/dL (7-17); CALCIUM 9.7 mg/dl (8.6-10.4); GFR NON-AFRICAN AMERICAN > 60; LIPASE 65 U/L (23-300)
[2019-01-19] MEDS ORDERED: Iodixanol 320 MG/ML 100 ML BOTTLE IV ONE (02:14)
[2019-01-19 04:29] VITALS: BP 100/60; PULSE 73; TEMP 97.9
--- NOTE | 2019-01-19 08:42 | CT ---
Date of service: 01/19/2019 PROCEDURE: CT Abdomen and Pelvis with and without intravenous contrast HISTORY: abd pain COMPARISON: None. TECHNIQUE: Axial images of the abdomen were obtained in the pre contrast, portal venous and delayed phases of enhancement. Coronal and sagittal reformats were generated. Contrast dose: Radiation dose: Total exam DLP = 793.15 mGy-cm. This CT exam was performed using one or more of the following dose reduction techniques: Automated exposure control, adjustment of the mA and/or kV according to patient size, and/or use of iterative reconstruction technique. FINDINGS: LOWER THORAX: Mild cardiomegaly. LIVER: Unremarkable. No gross lesion or ductal dilatation. GALLBLADDER AND BILE DUCTS: Cholecystectomy. PANCREAS: Unremarkable. No gross lesion or ductal dilatation. SPLEEN: Unremarkable. ADRENALS: Unremarkable. No mass. KIDNEYS AND URETERS: Unremarkable. No hydronephrosis. No solid mass. VASCULATURE: Unremarkable. No aortic aneurysm. No aortic atherosclerotic calcification or mural plaque present. BOWEL: Fluid throughout the colon; correlate clinically for diarrhea. APPENDIX: Normal appendix. PERITONEUM: Moderate amount of free fluid in the pelvis. LYMPH NODES: Unremarkable. No enlarged lymph nodes. BLADDER: Unremarkable. REPRODUCTIVE: Hysterectomy. BONES: No acute fracture. OTHER FINDINGS: None. IMPRESSION: Fluid throughout the colon; correlate clinically for diarrhea. Hysterectomy cholecystectomy. Moderate fluid in the pelvis.
== END 2019-01-19 04:29 | disposition home or self-care (01) ==
LOC: C.ER 23:01
DX: R11.2 Nausea with vomiting, unspecified (principal); R19.7 Diarrhea, unspecified
CPT/HCPCS: 74177; 80053; 81001; 81025; 83690; 84703; 85025; 85610; 85730; 96374; 96375; 99284; J1885; J2405; J7030; Q9967